=== PATIENT | female | born 1960 | race Caucasian/White ===

== ENCOUNTER 2017-03-22 06:14 | Day surgery (SDC) | payer OTHER ==
[~2017-03-22] VITALS: Ht 162.6 cm; Wt 81.0 kg
[~2017-03-22 06:14] MED LIST: LISI10TA2 PO; OMEP20CA16 PO; PARO10TA PO; RANI150T9 PO
[2017-03-22 07:08] VITALS: Ht 162.6 cm; Wt 81.0 kg
[2017-03-22] MEDS ORDERED: FENTAnyl 50 MCG/ML VIAL ONE (08:26)
[2017-03-22] MEDS ORDERED: MIDAZOLAM 1 MG/ML 2 ML INJ ONE ×2 (08:26→08:27)
--- NOTE | 2017-03-22 08:27 | OPPN ---
Date/Time of Note Date/Time of Note DATE: 03/22/17 TIME: 08:26 Operative Report Preoperative Diagnosis Change in bowel habit Postoperative Diagnosis Internal hemorrhoids No colon neoplasm is identified Operation/Procedure Performed Colonoscopy Surgeon see signature line orthopedic physician assistant None Anesthesia: moderate sedation Estimated blood loss: none Transfusion Required none Specimen None Grafts/Implants none Complications none LYN KATHLEEN MD Mar 22, 2017 08:27
--- NOTE | 2017-03-22 08:27 | OPPN ---
Date/Time of Note Date/Time of Note DATE: 03/22/17 TIME: 08:26 Operative Report Preoperative Diagnosis Change in bowel habit Postoperative Diagnosis Internal hemorrhoids No colon neoplasm is identified Operation/Procedure Performed Colonoscopy Surgeon see signature line assistant tennis professional None Anesthesia: moderate sedation Estimated blood loss: none Transfusion Required none Specimen None Grafts/Implants none Complications none LYN KATHLEEN MD Mar 22, 2017 08:27
--- NOTE | 2017-03-22 08:27 | OPPN ---
Date/Time of Note Date/Time of Note DATE: 03/22/17 TIME: 08:26 Operative Report Preoperative Diagnosis Change in bowel habit Postoperative Diagnosis Internal hemorrhoids No colon neoplasm is identified Operation/Procedure Performed Colonoscopy Surgeon see signature line assistant professor of biology None Anesthesia: moderate sedation Estimated blood loss: none Transfusion Required none Specimen None Grafts/Implants none Complications none LYN KATHLEEN MD Mar 22, 2017 08:27
--- NOTE | 2017-03-22 12:15 | GILP ---
DATE OF PROCEDURE: NAME OF PROCEDURE: Colonoscopy. SURGEON: Lyn Jolley MD PREOPERATIVE DIAGNOSIS: 1. Change in bowel habit. 2. History of colon polyps. POSTOPERATIVE DIAGNOSES 1. Colonoscopy all the way to the cecum. 2. Diverticulosis of the colon. 3. Internal hemorrhoids. 4. No colon neoplasm was identified. INDICATION FOR THE PROCEDURE: Ms. Lilian Carrizales is a 56-year-old female patient who noticed a best e in the bowel habit. She had history of colon polyps. The patient was scheduled for colonoscopy f or further evaluation. The procedure and possible complications were well explained to the patient, she understood and cons ented to the procedure. DESCRIPTION OF PROCEDURE: Under the influence of fentanyl and Versed, the colonoscope was carefully introduced in the rectum and under direct vision, it was advanced all the way to the cecum. FINDINGS: The patient had diverticulosis of the colon. She also had internal hemorrhoids. No colo n neoplasm was identified. The patient tolerated the procedure very well and there was no complication from the procedure. At the end of the procedures, she was awake with stable vital signs and she was discharged home to the care of her family. IMPRESSION: Please see postoperative diagnosis. PLAN: Next screening colonoscopy in 10 years. Dictated By: LYN GARCIA/JAX Conf#: [id number] DID#: [id number]
== END 2017-03-22 11:19 | disposition home or self-care (01) ==
LOC: GIL 06:14
PROVIDERS: ATTEND Internal Medicine Gastroenterology
DX: K57.30 Diverticulosis of large intestine without perforation or abscess without bleeding (principal); K64.8 Other hemorrhoids; Z86.010 Personal history of colon polyps; I10 Essential (primary) hypertension
CPT/HCPCS: 45378; J2250; J3010; Z7610